=== PATIENT | male | born 1965 | race Caucasian/White ===

== ENCOUNTER 2017-07-30 15:33 | Emergency (ER) | payer MEDICARE ==
[2017-07-30 15:55] VITALS: BP 116/79; PULSE 69; RESP 16; TEMP 98.7; O2SAT 99
[2017-07-30] MEDS ORDERED: Sodium Chloride 0.9% 1,000 ML IV STA (16:41)
--- NOTE | 2017-07-30 16:55 | ED PDOC ---
HPI: Headache Chief Complaint (Provider): dizziness History Per: Patient History/Exam Limitations: no limitations Onset/Duration Of Symptoms: Days (2) Current Symptoms Are (Timing): Intermittent Episodes Pain Scale Rating Of: 6 Quality: Sharp Additional Complaint(s): 52 yo ,m, PMHx/o Migraine, Gastritis, Cervical radiculopathy, shellfish allergies presents to Ed c/o dizziness for the last 2 days, fatigue, associated with headache frontal started today 1 hour ago, 6/10 intensity, not radiated w/ o associated symptoms. Patient also reports urinary symptoms: urgency to urinate , hesitancy, push to urinate for the last 3 days , but denies dysuria, hematuria , flank pain. Reports subjective fever for the last 2 days. Reports tongue swelling noticed last night that subsided spontaneously w/o rash, hives and w/o food relation. Denies cough, SOB, chest pain, n,v,d,abd pain, weakness, numbness, blurry vision. Pt smoker, using marijuana, last use 7 days ago. ETOH last use 7 days ago. denies other drugs.Afebrile in ED, alert AAOX3, no tongue swollen noticed, no hives. PMD: NO PMD <Dorie Ellis - Last Filed: 07/30/17 18:46> <Luis Dill - Last Filed: 07/30/17 19:09> Time Seen by Provider: 07/30/17 16:12 Chief Complaint (Nursing): Dizziness/Lightheaded Supervising Attending Note - Supervising Attending Note The Documented history was done by the: Physician Composition Molder The documented physical exam was done by the: Physician Composition Molder The documented procedures were done by the: Physician Composition Molder - Attestation: I have personally seen and examined this patient.: Yes I have fully participated in the care of the patient.: Yes I have reviewed all pertinent clinical information: Yes - Notes: Notes:: Pt. with headache frontal mild like his usual migraine. Not worst in his life. No numbness or tingles. Has urgency of urination. Had swelling of tongue that resolved without tx. <Luis Dill - Last Filed: 07/30/17 19:09> Past Medical History Reviewed: Historical Data, Nursing Documentation, Vital Signs Vital Signs: Last Vital Signs Temp 98.7 F 07/30/17 15:53 Pulse 69 07/30/17 15:53 Resp 16 07/30/17 15:53 BP 116/79 07/30/17 15:53 Pulse Ox 99 07/30/17 15:53 - Medical History PMH: Gastritis, Migraine - Family History Family History: States: Unknown Family Hx - Social History Alcohol: Social Drugs: Cannabis <Dorie Ellis - Last Filed: 07/30/17 18:46> Vital Signs: Last Vital Signs Temp 98.7 F 07/30/17 15:53 Pulse 69 07/30/17 15:53 Resp 16 07/30/17 15:53 BP 116/79 07/30/17 15:53 Pulse Ox 99 07/30/17 18:46 <Luis Dill - Last Filed: 07/30/17 19:09> - Home Medications Home Medications: Ambulatory Orders Medication Instructions Recorded No Known Home Med 05/12/15 - Allergies Allergies/Adverse Reactions: Allergies Allergy/AdvReac Type Severity Reaction Status Date / Time shellfish derived Allergy RASH Verified 07/30/17 15:53 Review of Systems ROS Statement: Except As Marked, All Systems Reviewed And Found Negative Constitutional: Positive for: Fever Gastrointestinal: Positive for: Other (tongue swollen last night) Neurological: Positive for: Headache, Dizziness <Dorie Ellis - Last Filed: 07/30/17 18:46> Gastrointestinal: Positive for: Other <Luis Dill - Last Filed: 07/30/17 19:09> Physical Exam - Physical Exam Appears: Positive for: Well, No Acute Distress Head Exam: Positive for: ATRAUMATIC, NORMOCEPHALIC Skin: Positive for: Normal Color Eye Exam: Positive for: Normal appearance Neck: Positive for: Normal, Supple Cardiovascular/Chest: Positive for: Regular Rate, Rhythm. Negative for: Murmur Respiratory: Positive for: Normal Breath Sounds. Negative for: Crackles, Rales , Rhonchi Gastrointestinal/Abdominal: Positive for: Soft. Negative for: Guarding, Rebound Back: Positive for: Normal Inspection. Negative for: L CVA Tenderness, R CVA Tenderness Extremity: Positive for: Normal ROM. Negative for: Pedal Edema Neurologic/Psych: Positive for: Alert, Oriented <Dorie Ellis - Last Filed: 07/30/17 18:46> - Physical Exam Head Exam: Positive for: ATRAUMATIC, NORMAL INSPECTION, NORMOCEPHALIC Neck: Positive for: Normal, Supple Cardiovascular/Chest: Positive for: Regular Rate, Rhythm Respiratory: Positive for: Normal Breath Sounds Gastrointestinal/Abdominal: Positive for: Soft. Negative for: Tenderness Back: Positive for: Normal Inspection <Luis Dill - Last Filed: 07/30/17 19:09> - Laboratory Results Result Diagrams: 07/30/17 17:14 07/30/17 17:14 - ECG O2 Sat by Pulse Oximetry: 99 <Dorie Ellis - Last Filed: 07/30/17 18:46> - Laboratory Results Result Diagrams: 07/30/17 17:14 07/30/17 17:14 Interpretation Of Abn Labs: no acute - ECG ECG: Positive for: Interpreted By Me, Viewed By Me ECG Rhythm: Positive for: Normal QRS, Normal ST Segment, Sinus Rhythm Pulse Ox Interpretation: Normal - Progress ED Course And Treament: 1906: Stable. AAOx3. Pain free. Tolerated PO. Fu with pcp. <Luis Dill M - Last Filed: 07/30/17 19:09> Medical Decision Making Medical Decision Makin: [age] yo ,m, PMhx/o migraine, cervical radiculopathy, presents c/o dizziness, headache, urinary symptoms Impression Dizziness may be secondary to dehydration Possible UTI Plan CBC, CMP,troponin, UA, Urine tox, serum ETOH IV Fluids NS 1 L , [place] 10 mg IV Labs reviewed CBC, CMP , troponin normal , urine dip normal, ETOH serum normal, Urine tox pending 18:44 Patient reports feeling better. denies headache, dizziness PAtient cleared to be discharged. <Dorie Ellis - Last Filed: 07/30/17 18:46> Disposition - Disposition Disposition Time: 18:45 <Dorie Ellis - Last Filed: 07/30/17 18:46> - Patient ED Disposition Is Patient to be Admitted: No Counseled Patient/Family Regarding: Studies Performed, Diagnosis, Need For Followup - Disposition Disposition: Routine/Home <Luis Dill - Last Filed: 07/30/17 19:09> - Clinical Impression Clinical Impression: Dizziness, Headache - Disposition Referrals: [facility] [Outside] - 07/31/17 Condition: FAIR Additional Instructions: Return if not better in 3 days. Instructions: Dizziness, Nonvertigo, (DC), Migraine Headaches in Adults Forms: [facility] ED School/Work Excuse
[2017-07-30 17:22] LABS: BASO # 0.1 K/uL (0.0-0.2); BASO % 1.3 % (0.0-2.0); EOS # 0.2 K/uL (0.0-0.7); EOS % 2.1 % (0.0-4.0); HEMOGLOBIN 15.8 g/dL (12.0-18.0); LYMPH % 23.8 % (20.0-40.0); MEAN CELL VOLUME 93.6 fl (80.0-94.0); MEAN CORPUSCULAR HEMOGLOBIN 31.9 pg (27.0-31.0); MEAN CORPUSCULAR HGB CONC 34.1 g/dL (33.0-37.0); MEAN PLATELET VOLUME 9.7 fl (7.2-11.7); MONO # 0.5 K/uL (0.0-0.8); MONO % 6.3 % (0.0-10.0); NEUT # 5.6 K/uL (1.8-7.0); NEUT % 66.5 % (50.0-75.0); RBC 4.95 Mil/uL (4.40-5.90); RED CELL DISTRIBUTION WIDTH 13.2 % (11.5-14.5); WHITE BLOOD COUNT 8.5 K/uL (4.8-10.8)
[2017-07-30 17:29] LABS: ALB/GLOB RATIO 1.3 (1.0-2.1); ALBUMIN 4.2 g/dL (3.5-5.0); CALCIUM 9.7 mg/dL (8.4-10.2); GFR AFRICAN-AMERICAN > 60; GFR NON-AFRICAN AMERICAN > 60
[2017-07-30 17:30] LABS: ALT/SGPT 27 U/L (21-72); AST/SGOT 29 U/L (17-59); BLOOD UREA NITROGEN 11 mg/dl (9-20)
[2017-07-30 18:48] LABS: BARBITURATES, UR NEGATIVE (NEGATIVE); BENZODIAZEPINES, UR NEGATIVE (NEGATIVE); OPIATES, UR POSITIVE (NEGATIVE); PHENCYCLIDINE, UR NEGATIVE (NEGATIVE)
--- NOTE | 2017-07-31 13:32 | CARD ---
APPROVED REPORT EKG Measurement Heart [id number] <Conclusion> Normal sinus rhythm with sinus arrhythmia Normal ECG
== END 2017-07-30 19:48 | disposition home or self-care (01) ==
LOC: H.ER 15:33
DX: R42 Dizziness and giddiness (principal); R51 Headache; F12.90 Cannabis use, unspecified, uncomplicated; M54.12 Radiculopathy, cervical region
CPT/HCPCS: 80053; 84484; 85025; 93005; 96360; 99283; G0480; J2765; J7040